=== PATIENT | male | born 1950 | race Caucasian/White ===

== ENCOUNTER 2023-06-29 10:59 | Outpatient (CLI) | payer MEDICARE, SELFPAY ==
--- NOTE | ~2023-06-29 | XR_ITS ---
EXAMINATION: XR lumbar spine min 4V DATE: 06/29/2023 11:29 INDICATION: Sciatica TECHNIQUE: Anteroposterior, lateral, and bilateral oblique views of the lumbar spine, and cone-down l ateral view of the lumbosacral junction were obtained. COMPARISON: None. FINDINGS: Bone alignment is normal. There is no fracture. There is mild loss of intervertebral disc s pace height at L4-5 and L5-S1. The vertebral body heights are maintained. Small degenerative osteophy rahul project from the anterior endplates of multiple vertebral bodies. There is mild facet joint osteo arthritis of the lower lumbar spine. Moderate bilateral hip osteoarthritis is noted. IMPRESSION: 1. Mild lumbar spondylosis without acute findings. Reviewed, dictated and finalized at location B. RVISOR MACHINING
== END 2023-06-29 11:00 | disposition home or self-care (01) ==
PROVIDERS: PCP Family Medicine; Visit Provider Family Medicine
DX: M43.06 Spondylolysis, lumbar region (principal); M54.32 Sciatica, left side
CPT/HCPCS: 72110

== ENCOUNTER 2025-05-08 09:21 | Outpatient (CLI) | payer MEDICARE, SELFPAY ==
--- NOTE | ~2025-05-08 | US_ITS ---
US abdomen limited Indication: R10.13 - Epigastric pain Comparison: None Technique: Chapin-scale and color Doppler images were obtained. Findings: LIVER: Increased echogenicity of the liver. . GALLBLADDER/BILIARY: Unremarkable.No cholelithiais, wall thickening or pericholecystic fluid. No biliary dilatation. CBD 4 mm. Landers sign negative. PANCREAS: Pancreas not clearly visualized due to bowel gas. Right Kidney: Right kidney was not imaged. Impression: Moderate hepatic steatosis. Reviewed, dictated and finalized at location P. EY PLAYER Impression: Moderate hepatic steatosis.
== END 2025-05-08 09:22 | disposition home or self-care (01) ==
LOC: GOSHIMG 09:21
PROVIDERS: PCP Family Medicine; Visit Provider Family Medicine
DX: R10.13 Epigastric pain (principal); K76.0 Fatty (change of) liver, not elsewhere classified
CPT/HCPCS: 76705